=== PATIENT | female | born 1965 | race Caucasian/White ===

== ENCOUNTER 2020-07-19 15:46 | Outpatient (CLI) | payer OTHER, SELFPAY ==
--- NOTE | ~2020-07-19 | MM_ITS ---
EXAMINATION: MM screening opal BI w mook HISTORY: Screening TECHNIQUE: Craniocaudal and mediolateral oblique 3-D tomosynthesis images were obtained and synthetic 2-D images were generated. CAD analysis was submitted and interpreted. COMPARISON: Comparison to multiple prior studies sequentially, with oldest reviewed study dated 12/10. BREAST PARENCHYMAL COMPOSITION: The breasts are heterogenously dense, which may obscure small masses. FINDINGS: There is no evidence of suspicious mass, calcification, or architectural distortion to sugg est malignancy in either breast. There has been no suspicious interval change. IMPRESSION: 1. No mammographic evidence of malignancy. 2. Recommend routine screening mammography in one year. BI-RADS Category 1: Negative Reviewed, dictated and finalized at location A. F PAYROLL CLERK
== END 2020-07-19 15:47 | disposition home or self-care (01) ==
LOC: ANHIMG 15:52
PROVIDERS: PCP Family Medicine; Visit Provider Physician Assistant
DX: Z12.31 Encounter for screening mammogram for malignant neoplasm of breast (principal)
CPT/HCPCS: 77063; 77067

== ENCOUNTER 2020-08-04 16:03 | Outpatient (CLI) | payer OTHER, SELFPAY | END 2020-08-04 16:04 | disposition home or self-care (01) | LOC: ANHCOVIDVC 16:03 | PROVIDERS: PCP Family Medicine | DX: Z23 Encounter for immunization (principal) | CPT/HCPCS: 0001A; 91300 ==

== ENCOUNTER 2020-08-25 15:59 | Outpatient (CLI) | payer OTHER, SELFPAY | END 2020-08-25 16:00 | disposition home or self-care (01) | LOC: ANHCOVIDVC 15:59 | PROVIDERS: PCP Family Medicine | DX: Z23 Encounter for immunization (principal) | CPT/HCPCS: 0002A; 91300 ==

== ENCOUNTER 2021-05-10 01:27 | Day surgery (SDC) | payer OTHER, SELFPAY ==
[2021-04-27 13:49] VITALS: BMI 19.0
[2021-05-10 08:53] VITALS: BP 95/72; PULSE 93; RESP 16; TEMP 36.2; O2SAT 100
[2021-05-10] MEDS: LACTATED RINGERS 1,000 ML 150 ML IV CONT (09:04)
--- NOTE | 2021-05-10 09:18 | WPDANESEPPF ---
Anes - Initial Pre Proc Eval Procedure: Operation Date: 05/10/21 10:00 Proposed Procedures p Screening Colonoscopy - Latrell Paredes MD Date/Time: 05/10/21 09:18 Surgeon: Latrell Paredes MD Pre Op Diagnosis: neoplasm screening Patient Data Age: 56 Gender: F Height: 1.7 m Weight: 50.5 kg Last Vital Signs Temp 36.2 C L 05/10/21 08:53 Pulse 93 05/10/21 08:53 Resp 16 05/10/21 08:53 BP 95/72 L 05/10/21 08:53 Pulse Ox 100 05/10/21 08:53 Allergies Allergy/AdvReac Type Severity Reaction Status Date / Time No Known Allergies Allergy Mild Verified 05/10/21 08:52 Home Medications Medication Instructions Recorded Confirmed Type estradiol 1 g VAGINAL .COMPLEX #42.5 gm 11/09/20 05/10/21 Rx paroxetine HCl 20 mg tablet See Rx Instructions .ROUTE 01/30/21 05/10/21 Rx .COMPLEX #90 tablet Patient hx anesthesia problems: none Family hx anesthesia problems: none Results Review: All pre-operative results and documents have been reviewed as part of the pre-operative evaluation. [facility] Past Medical History Medical History (Updated 10/25/19 @ 11:12 by Elvira Greenwood PA-C) Carpal tunnel syndrome (~2016) Surgical History Surgical History H/O hand surgery (~10/13/19) [facility] arthroplasty H/O neck surgery (~2013) Hx of LASIK Family History Family History Grandparent Diabetes mellitus Family history of mental disorder Hypertension Family history of cardiovascular disease Family history of coronary artery disease Mother Hypertension Social History Social History Smoking packs per day: 1 Smoking cigarettes per day: 20.0 Years smoked: 23 Smoking pack-years: 23.00 Smoking status: Former smoker Tobacco type: cigarettes Smoking end date: 04/18/88 Alcohol intake: current Drinks per week: 5 Substance use: never Substance use type: does not use Living arrangements: with family Spiritual care concerns: No Anes - Eval Final PreProcedure Day of Procedure 05/10/21 09:18 Patient weight: thin Heart: regular rate and rhythm Lungs: clear to auscultation Airway: Mallampati scale class II Neurological: alert and oriented Last oral intake: >/= 8 hours ASA classification: II Emergent: no Anesthetic plan: proceed Anesthesia type and monitoring: general GIVS and standard monitoring Results Review: All pre-operative results and documents have been reviewed as part of the pre-operative evaluation. Informed Consent: The patient's anesthetic plan and its attendant risks and benefits were discussed with the patient/family/POA. Questions were solicited and answers provided to the satisfaction of the patient/family/POA.
--- NOTE | 2021-05-10 09:26 | WPDGICN ---
Assessment and Plan Assessment and plan (1) Encounter for screening colonoscopy: Code(s): Z12.11 - Encounter for screening for malignant neoplasm of colon Status: Acute Assessment and Plan: Patient presents for screening colonoscopy. Appears to be at average risk for colon polyps. GI Consult Note Consult date/time: 05/10/21 09:26 HPI: Raquel Celis is a 56 year old female Presents for screening colonoscopy. Patient's current weight appetite bowel movements are normal. She denies abdominal pain. She has had no bleeding. Family history is noncontributory. Review of Systems Review of Systems: All systems reviewed & are unremarkable except as noted in HPI and below PMFSH Past Medical History Medical History (Updated 05/10/21 @ 09:27 by Latrell Paredes MD) Carpal tunnel syndrome (~2016) Surgical History Surgical History H/O hand surgery (~10/13/19) [facility]MC arthroplasty H/O neck surgery (~2013) Hx of LASIK Family History Family History Grandparent Diabetes mellitus Family history of mental disorder Hypertension Family history of cardiovascular disease Family history of coronary artery disease Mother Hypertension Social History Social History Smoking packs per day: 1 Smoking cigarettes per day: 20.0 Years smoked: 23 Smoking pack-years: 23.00 Smoking status: Former smoker Tobacco type: cigarettes Smoking end date: 04/18/88 Alcohol intake: current Drinks per week: 5 Substance use: never Substance use type: does not use Living arrangements: with family Spiritual care concerns: No Meds Home Medications and Allergies Home Medications Medication Instructions Recorded Confirmed Type estradiol 1 g VAGINAL .COMPLEX #42.5 gm 11/09/20 05/10/21 Rx paroxetine HCl 20 mg tablet See Rx Instructions .ROUTE 01/30/21 05/10/21 Rx .COMPLEX #90 tablet Allergies Allergy/AdvReac Type Severity Reaction Status Date / Time No Known Allergies Allergy Mild Verified 05/10/21 08:52 Vital Signs Vital Signs - 24 hr 05/10/21 08:53 Temperature 97.1 F L Pulse Rate 93 Respiratory Rate 16 Blood Pressure 95/72 L Pulse Oximetry 100 Exam Narrative: Physical exam reveals patient to be alert. Vital signs stable. HEENT exam is unremarkable. Patient is anicteric. Lungs are clear to auscultation and percussion. Heart is without murmur or extra sounds. Abdominal exam bowel sounds present soft nontender with no organomegaly. Digital external rectal exam is normal.
[2021-05-10 10:24] VITALS: BP 118/68; PULSE 94; RESP 14; O2SAT 100
[2021-05-10 10:34] VITALS: BP 108/59; PULSE 77; RESP 13; O2SAT 100
[2021-05-10 10:44] VITALS: BP 108/56; PULSE 77; RESP 13; O2SAT 100
== END 2021-05-10 10:58 | disposition home or self-care (01) ==
PROVIDERS: PCP Family Medicine; Visit Provider Internal Medicine Gastroenterology
PROC: 0DJD8ZZ Inspection of Lower Intestinal Tract, Via Natural or Artificial Opening Endoscopic (ICD-10-PCS; CPT 45378; principal; 2021-05-10 10:00)
DX: Z12.11 Encounter for screening for malignant neoplasm of colon (principal); K64.8 Other hemorrhoids
CPT/HCPCS: 45378; J2704; J7120

== ENCOUNTER 2022-01-05 09:25 | Outpatient (CLI) | payer OTHER, SELFPAY ==
--- NOTE | ~2022-01-05 | MM_ITS ---
EXAMINATION: MM screening opal BI w mook HISTORY: Screening TECHNIQUE: Craniocaudal and mediolateral oblique 3-D tomosynthesis images were obtained and synthetic 2-D images were generated. CAD analysis was submitted and interpreted. COMPARISON: Comparison to multiple prior studies sequentially, with oldest reviewed study dated 06/05. BREAST PARENCHYMAL COMPOSITION: The breasts are heterogeneously dense, which may obscure small masses FINDINGS: There is no evidence of suspicious mass, calcification, or architectural distortion to sugg est malignancy in either breast. There has been no suspicious interval change. IMPRESSION: 1. No mammographic evidence of malignancy. 2. Recommend routine screening mammography in one year. BI-RADS Category 1: Negative Reviewed, dictated and finalized at location A.
== END 2022-01-05 09:26 | disposition home or self-care (01) ==
PROVIDERS: PCP Family Medicine; Visit Provider Physician Assistant
DX: Z12.31 Encounter for screening mammogram for malignant neoplasm of breast (principal)
CPT/HCPCS: 77063; 77067

== ENCOUNTER 2022-04-03 09:20 | Emergency (ER) | payer OTHER, SELFPAY ==
--- NOTE | ~2022-04-03 | CT_ITS ---
EXAMINATION: CT brain wo con DATE: 04/03/2022 10:04 INDICATION: Head injury. TECHNIQUE: Computed tomography (CT) of the head was performed without intravenous contrast. The mA wa s adjusted according to patient size. Iterative reconstruction technique was employed. The dose-lengt h product was 605.33 mGy-cm. COMPARISON: None FINDINGS: There is no intracranial hemorrhage, acute infarction, or abnormal intracranial mass lesion . There are scattered areas of low attenuation in the cerebral white matter. The ventricles are carson l in size. There is mild mucosal thickening in the paranasal sinuses. The mastoid air cells are carson l. The orbits are normal. There is a frontal scalp laceration. IMPRESSION: 1. Mild nonspecific cerebral white matter disease, which likely represents chronic small vessel ische l[place] disease. Reviewed, dictated and finalized at location A. ING AGENT IMPRESSION: 1. Mild nonspecific cerebral white matter disease, which likely represents body designer juvencio small vessel ischemic disease.
--- NOTE | ~2022-04-03 | CT_ITS ---
EXAMINATION: CT cervical spine wo con DATE: 04/03/2022 10:04 INDICATION: Head injury. TECHNIQUE: Computed tomography (CT) of the cervical spine was performed without intravenous contrast. Automated exposure control and iterative reconstruction technique were employed. The dose-length pro duct was 135.41 mGy-cm. COMPARISON: None FINDINGS: There is mild scarring at the lung apices. There is 2 mm anterolisthesis of C7 on T1. There are changes of anterior fusion procedure from C5 to C7 with healed interbody bone graft and anterior plate and screws. Vertebral body heights are normal. There is mildly decreased disc height at C7-T1. The following disc levels are specifically discussed: C2-C3: There is no uncovertebral joint osteoarthritis. There is severe right and moderate left facet joint osteoarthritis. There is no neural foraminal stenosis. There is no central canal stenosis. C3-C4: There is moderate right and mild left uncovertebral joint osteoarthritis. There is mild left f acet joint osteoarthritis. There is ankylosis of right facet joint with moderate hypertrophy. There i s moderate right neural foraminal stenosis. There is no central canal stenosis. C4-C5: There is severe right and moderate left uncovertebral joint osteoarthritis. There is severe ri ght facet joint osteoarthritis. There is moderate right and mild left neural foraminal stenosis. Ther e is mild central canal stenosis. C5-C6: There is moderate bilateral uncovertebral joint hypertrophy. There is ankylosis of the facet j oints with mild hypertrophy. There is moderate and mild left neural foraminal stenosis. There is no c entral canal stenosis. C6-C7: There is severe right and moderate left uncovertebral joint hypertrophy. There is mild bilater al facet joint osteoarthritis. There is moderate neural foraminal stenosis. There is no central canal stenosis. C7-T1: There is no uncovertebral joint osteoarthritis. There is severe bilateral facet joint osteoart hritis. There is mild bilateral neural foraminal stenosis. There is no central canal stenosis. IMPRESSION: 1. No fracture. 2. Moderate cervical spondylosis. 3. Anterior fusion procedure from C5 to C7. Reviewed, dictated and finalized at location A. NT APPLICATION SUPPORT ENGINEER
--- NOTE | ~2022-04-03 | CT_ITS ---
EXAMINATION: CT facial bones wo con DATE: 04/03/2022 10:53 INDICATION: Facial pain and epistaxis post fall with head injury TECHNIQUE: Computed tomography (CT) of the facial bones and maxillofacial region was performed withou t intravenous contrast. Coronal reconstructions were obtained. Automated exposure control and iterati ve reconstruction technique were employed. The dose-length product was 284.47 mGy-cm. COMPARISON: Head CT dated 04/03/2022 FINDINGS: Supraorbital left frontal skin laceration and associated contusion. Mild soft tissue swelling along t he left side of the bridge of the nose where there is nasal bone fracture with minimal angulation and less than 1 mm step-off. Nasal septum is midline and appears intact. Mastoid air cells, middle ear c avities and maxillofacial sinuses are clear. No other maxillofacial fractures. Specifically the chavez of the orbits and paranasal sinuses, the zygomatic arches, mandible and pterygoid plates are normal. C5-C6 anterior spinal fusion with partially visualized anterior plate and screw fixation. IMPRESSION: 1. Left nasal bone fracture without significant displacement or angulation. No other maxillofacial fr actures. Reviewed, dictated and finalized at location B. TRICAL PANEL BUILDER IMPRESSION: 1. Left nasal bone fracture without significant displacement or angulation. No other maxillofacial fractures.
[2022-04-03 09:37] VITALS: BP 139/68; PULSE 68; RESP 18; O2SAT 100
--- NOTE | 2022-04-03 10:24 | ED.GENADULT ---
HPI - General Adult General Chief complaint: Wound/Laceration Stated complaint: HI Time Seen by Provider: 04/03/22 09:43 Source: patient Mode of arrival: ambulatory Limitations: no limitations History of Present Illness HPI narrative: Patient is a 57-year-old female who presents the ED with report of head injury. Patient reports she tripped and fell at work this morning, landing straight forward, hitting her face on the ground. She did not lose consciousness. She sustained a laceration to the bridge of her nose and to her forehead, between her eyebrows. No other injuries. No other pain. No neck pain, back pain. No prodromal symptoms. Tetanus status up-to-date. Related Data Allergies Allergy/AdvReac Type Severity Reaction Status Date / Time No Known Allergies Allergy Mild Verified 04/03/22 09:42 Review of Systems Review of Systems: CONSTITUTIONAL: Denies fever, chills, or sweats. EYES: Denies visual changes. CARDIOVASCULAR: Denies chest pain. RESPIRATORY: Denies dyspnea. GASTROINTESTINAL: Denies abdominal pain, nausea, vomiting. GENITOURINARY: Denies dysuria or hematuria. SKIN: Reports laceration to forehead. MUSCULOSKELETAL: Denies neck pain, back pain, joint pain, or myalgia. NEUROLOGIC: Reports head injury. Denies dizziness, LOC, headache, numbness, or weakness. All systems reviewed & are unremarkable except as noted in HPI and below PMFSH Past Medical History Medical History Carpal tunnel syndrome (~2016) Hepatitis C antibody test negative (11/21/20) Surgical History Surgical History H/O hand surgery (~10/13/19) [facility] arthroplasty H/O neck surgery (~2013) Hx of MICAELA Family History Family History Grandparent Diabetes mellitus Family history of mental disorder Hypertension Family history of cardiovascular disease Family history of coronary artery disease Mother Hypertension Social History Social History Smoking packs per day: 1 Smoking cigarettes per day: 20.0 Years smoked: 23 Smoking pack-years: 23.00 Smoking status: Former smoker Tobacco type: cigarettes Smoking end date: 04/18/88 Alcohol intake: current Drinks per week: 5 Substance use: never Substance use type: does not use Spiritual care concerns: No Exam Narrative: GENERAL: Well appearing, well-nourished, non-toxic, in no acute distress. HEAD: Normocephalic. EENT: PERRLA, EOMI, conjunctiva clear. TMs without bulging or erythema bilaterally. No TM perforation. Small abrasion to bridge of nose. Tenderness to palpation over bridge of nose. Dried blood in left nare. No septal hematoma. NECK: Supple. No adenopathy, no masses. No significant midline spinal tenderness. RESPIRATORY: Airway patent, respirations nonlabored. Clear to auscultation bilaterally, no rales, rhonchi, wheezing. CARDIOVASCULAR: Regular rate and rhythm without murmurs, rubs, or gallops. Peripheral pulses 2+ and equal bilaterally. MUSCULOSKELETAL: Moves all extremities. Strength/ROM intact without gross deformities. Strength 5 out of 5 in upper and lower extremities bilaterally. No midline thoracic or lumbar spinal tenderness. SKIN: Warm, dry, normal color. No rashes. Approx. 4cm laceration to left forehead, just above eyebrow, almost lightening bolt shape. NEURO: A&O X3. Speech clear. Cranial nerves II-XII grossly intact. Steady gait. No ataxic movements. No focal deficits. PSYCHIATRIC: Appropriate mood and affect. Normal interaction. Course Vital Signs Vital signs: Vital Signs Pulse Rate 68 04/03/22 09:37 Respiratory Rate 18 04/03/22 09:37 Blood Pressure 139/68 04/03/22 09:37 Pulse Oximetry 100 04/03/22 09:37 Oxygen Delivery Room Air 04/03/22 09:37 Pulse Rate 75 04/03/22 12:52 Resp
[2022-04-03 12:52] VITALS: BP 125/60; PULSE 75; RESP 16; O2SAT 98
== END 2022-04-03 12:53 | disposition home or self-care (01) ==
PROVIDERS: Emergency Provider Emergency Medicine; PCP Physician Assistant
DX: S01.81XA Laceration without foreign body of other part of head, initial encounter (principal); S02.2XXA Fracture of nasal bones, initial encounter for closed fracture; Z87.891 Personal history of nicotine dependence; W01.0XXA Fall on same level from slipping, tripping and stumbling without subsequent striking against object, initial encounter
CPT/HCPCS: 12013; 70450; 70486; 72125; 99284

== ENCOUNTER 2022-04-13 11:36 | Outpatient (CLI) | payer OTHER, SELFPAY ==
--- NOTE | ~2022-04-13 | DEXA_ITS ---
Bone Density Report Name: JIMENEZ CAPUTO Age: 57 Sex: Female Ethnicity: White Date of : 1965 Indication: postmenopausal; screening for osteoporosis; prior fracture; Referring Provider: AZUL LOVING Study: Bone densitometry was performed. Exam Date: April 13, 2022 Accession number: [id number] Bone Density: Region BMD T-score Z-score Classification AP Spine(L1-L4) 0.836 -1.9 -0.7 Osteopenia Femoral Neck (Left) 0.577 -2.4 -1.3 Osteopenia Total Hip (Left) 0.651 -2.4 -1.6 Osteopenia Femoral Neck (Right) 0.601 -2.2 -1.1 Osteopenia Total Hip (Right) 0.696 -2.0 -1.2 Osteopenia Total Hip Mean 0.673 -2.2 -1.4 Osteopenia World Health Organization criteria for BMD impression classify patients as: Normal (T-score at or above -1.0), Osteopenia (T-score between -1.0 and -2.5), or Osteoporosis (T-score at or below -2.5). 10-year Fracture Risk(1): Major Osteoporotic Fracture 14% Hip Fracture 2.7% Reported Risk Factors: [place] (), Neck BMD=0.577, BMI=18.6, previous fracture (1) FRAX(R) Version 3.08. Fracture probability calculated for an untreated patient. Fracture probability may be lower if the patient has received treatment. Clinical Information Provided by Patient: Has had a low trauma fracture Patient maximum height was 67 Menopause Age: 50 Drinks caffeinated beverages Onset of menses at age 16 Number of children 2 Impression: The patient has low bone mass, based on the Left Total Hip T-score. The patient has an estimated ten-year risk of hip fracture of 2.7% and an estimated ten-year risk of major fracture of 14%, based on the WHO FRAX algorithm. The patient has risk factors, including: previous fracture. Discussion: BONE DENSITY IS LOW AT ONE OR MORE SKELETAL SITES. This patient's lowest T-score is low at one or more skeletal sites. It meets the World Health Organization's (WHO) criteria for ?low bone mass? (T-score between -1.0 and -2.5). The patient's 10-year risk of fracture as calculated by FRAX is less than the threshold where pharmacological therapy is recommended by the National Osteoporosis Foundation (NOF). However, all treatment decisions require clinical judgment and consideration of individual patient factors, including patient preferences, comorbidities, previous drug use, risk factors not captured in the FRAX model (e.g., frailty, falls, vitamin D deficiency, increased bone turnover, interval significant decline in bone density) and possible under or overestimation of fracture risk by FRAX. The patient should follow a healthful lifestyle (good nutrition with adequate calcium and vitamin D, and appropriate weight-bearing exercise). Follow-Up: Consider repeating this study in 2 to 3 years to reassess this patient's status, or sooner if there is some new
== END 2022-04-13 11:37 | disposition home or self-care (01) ==
PROVIDERS: PCP Physician Assistant; Visit Provider Physician Assistant
DX: Z13.820 Encounter for screening for osteoporosis (principal); M85.88 Other specified disorders of bone density and structure, other site; M85.852 Other specified disorders of bone density and structure, left thigh; M85.851 Other specified disorders of bone density and structure, right thigh
CPT/HCPCS: 77080

== ENCOUNTER → 2023-06-02 14:06 | Outpatient (CLI) | payer OTHER, SELFPAY ==
--- NOTE | ~2023-06-02 | MM_ITS ---
EXAMINATION: MM screening opal BI w mook HISTORY: Screening TECHNIQUE: Craniocaudal and mediolateral oblique 3-D tomosynthesis images were obtained and synthetic 2-D images were generated. CAD analysis was submitted and interpreted. COMPARISON: Comparison to multiple prior studies sequentially, with oldest reviewed study dated 11/28. BREAST PARENCHYMAL COMPOSITION: The breasts are heterogeneously dense, which may obscure small masses FINDINGS: There is a new asymmetry in the upper outer quadrant of the left breast posteriorly. The ri ght breast is stable without evidence for malignancy. IMPRESSION: 1. New left breast asymmetry, upper outer quadrant. 2. Additional mammographic views and possible breast ultrasound are recommended. BI-RADS Category 0: Incomplete: Needs additional imaging evaluation. Reviewed, dictated and finalized at location A. CLOTH EXAMINER IMPRESSION: 1. New left breast asymmetry, upper outer quadrant. 2. Additional mammographic views and possible breast ultrasound are recommended . BI-RADS Category 0: Incomplete: Needs additional imaging evaluation.
== END ==
PROVIDERS: PCP Family Medicine; Visit Provider Nurse Practitioner
DX: Z12.31 Encounter for screening mammogram for malignant neoplasm of breast (principal); R92.8 Other abnormal and inconclusive findings on diagnostic imaging of breast
CPT/HCPCS: 77063; 77067

== ENCOUNTER → 2023-06-27 14:17 | Outpatient (CLI) | payer OTHER, SELFPAY ==
--- NOTE | ~2023-06-27 | MMUS_ITS ---
EXAMINATION: MM diagnostic opal LT w mook, US breast LT limited HISTORY: New left breast asymmetry reported in upper outer quadrant on 06/02/2023 screening mammogram TECHNIQUE: Additional 3-D tomosynthesis images of the left breast were performed and synthetic 2-D im ages were generated. CAD analysis was submitted and interpreted. High resolution upper outer quadrant left breast ultrasound was performed. COMPARISON: 06/02/2023 bilateral screening mammogram FINDINGS: MAMMOGRAPHIC FINDINGS: The previously reported new left breast asymmetry is not confirmed on these supplemental views and wa s likely summation shadow of overlying fibroglandular content. Ultrasound of the upper outer quadrant was performed to confirm. ULTRASOUND: No suspicious mass or shadowing or other significant sonographic abnormalities detected in the upper outer quadrant of the left breast. IMPRESSION: 1. No mammographic or sonographic evidence of malignancy 2. Routine annual mammographic screening is recommended BI-RADS Category 1: Negative Reviewed, dictated and finalized at location A. HT AGENT IMPRESSION: 1. No mammographic or sonographic evidence of malignancy 2. Routine annual mammographic screening is recommended BI-RADS Category 1: Negative
== END ==
PROVIDERS: PCP Family Medicine; Visit Provider Nurse Practitioner
DX: R92.8 Other abnormal and inconclusive findings on diagnostic imaging of breast (principal)
CPT/HCPCS: 76642; 77061; 77065; G0279

== ENCOUNTER 2023-07-10 16:14 | Outpatient (CLI) | payer OTHER, SELFPAY ==
--- NOTE | ~2023-07-10 | MR_ITS ---
EXAMINATION: MR brain IAC wo con DATE: 07/10/2023 16:40 INDICATION: Unspecified injury of head, initial encounter. TECHNIQUE: Magnetic resonance imaging (MRI) of the brain, brainstem, and internal auditory canals was performed without intravenous contrast. COMPARISON: Head CT 04/03/2022 FINDINGS: There are scattered areas of nonspecific increased T2-weighted signal intensity in the cere bral white matter including periventricular and juxtacortical regions. There are areas of increased T 2-weighted signal intensity in the helen and middle cerebellar peduncles and left cerebellum. There is no acute ischemic infarct or intracranial hemorrhage. The ventricles are normal in size. The orbits are normal. There is mild mucosal thickening in right maxillary sinus. The mastoid air cells are norm al. IMPRESSION: 1. Moderate white matter disease, which may be multiple sclerosis and/or chronic small vessel ischemi c disease. Reviewed, dictated and finalized at location E. CHUTE CUSHION INSTALLER IMPRESSION: 1. Moderate white matter disease, which may be multiple sclerosis and/or chroni c small vessel ischemic disease.
== END 2023-07-10 16:15 | disposition home or self-care (01) ==
LOC: ANHIMG 16:18
PROVIDERS: PCP Family Medicine; Visit Provider Family Medicine
DX: H55.00 Unspecified nystagmus (principal); R27.0 Ataxia, unspecified; S09.90XA Unspecified injury of head, initial encounter; X58.XXXA Exposure to other specified factors, initial encounter; R90.82 White matter disease, unspecified
CPT/HCPCS: 70551

== ENCOUNTER 2024-11-23 09:57 | Outpatient (CLI) | payer OTHER, SELFPAY ==
--- NOTE | ~2024-11-23 | MMUS_ITS ---
EXAMINATION: MM diagnostic opal BI w mook, US breast BI complete HISTORY: Breast pain TECHNIQUE: Additional 3-D tomosynthesis images of the breasts were performed and synthetic 2-D images were generated. CAD analysis was submitted and interpreted. High resolution bilateral complete breas t ultrasound was performed. COMPARISON: Comparison to multiple prior studies sequentially, with oldest reviewed study dated 08/2017. BREAST PARENCHYMAL COMPOSITION: Dense: The breasts are heterogeneously dense, which may obscure small masses FINDINGS: MAMMOGRAPHIC FINDINGS: There are no suspicious masses, calcifications or architectural distortion in either breast to sugges t malignancy. ULTRASOUND: Complete US of all 4 quadrants of the breast/s and retroareolar region was reviewed. Normal heterogen eous echotexture without focal solid or cystic mass. IMPRESSION: 1. No evidence for malignancy in either breast. 2. Routine yearly screening mammogram and regular clinical breast examination are recommended. BI-RADS Category 1: Negative Reviewed, dictated and finalized at location A. IMPRESSION: 1. No evidence for malignancy in either breast. 2. Routine yearly screening mammogram and regular clinical breast examination a re recommended. BI-RADS Category 1: Negative
== END 2024-11-23 09:58 | disposition home or self-care (01) ==
PROVIDERS: PCP Family Medicine; Visit Provider Family Medicine
DX: R92.8 Other abnormal and inconclusive findings on diagnostic imaging of breast (principal)
CPT/HCPCS: 76641; 77062; 77066; G0279

== ENCOUNTER 2025-01-11 10:54 | Outpatient (CLI) | payer OTHER, SELFPAY ==
--- OUTSIDE RECORDS SUMMARY | 2016-09-10 11:00 | XMS_ITS | Continuity of Care Document ---
Author Organization [facility] Address [address] [place] [address] Phone Care Team Providers Care Christmas Bell Ringer Name Role Phone Niko Barahona MD Unavailable Unavailable Procedures Procedure Date DISABILITY EXAMINATION Advance Directives Directive Yes / No Effective Date File Name No Information Encounters Encounter Description Practice Location Reason(s) For Visit Diagnoses Date Provider Providers Copied on Encounter DISABILITY EXAMINATION [facility], [address], [place], [address], [place] tel:[phone] [facility] Bilateral carpal tunnel syndromePrimary osteoarthritis of first carpometacarpal joint of right hand 7 Jun Pope. [address], [place], [place], [id number] . tel: [phone] Family History Family Member Type Diagnosis Age At Onset No Information Payers Payer name Insurance type Covered libertarian ID Authoriza tion(s) No Information Social History Type Description Quantity Date Captured Comments Sex Female Smoking Status No Information Chief Complaint And Reason For Visit No Information Reason For Referral Reason For Referral No Information Plan Of Treatment Date Type Action Status Referral Ordered: RADEX HAND MINIMUM 3 VIEWS LT ordered Referral Ordered: RADEX HAND MINIMUM 3 VIEWS RT ordered History Of Present Illness Encounter Date Complaint History Of Prese nt Illness No Information Functional Status Date Functional Assessmen t No Information Instructions Date Instruction Additional Infor mation No Information Assessments Type Assessment Date assessment Bilateral carpal tunnel syndrome assessment Primary osteoarthrit is of first carpometacarpal joint of right hand Patient Care Teams Name Effective Dates (start - stop) Status Members No Information
--- OUTSIDE RECORDS SUMMARY | 2025-01-11 11:26 | XMS_ITS | Clinical Summary ---
Author Organization [facility] [employer] Address [address] [place] [address] Care Team Providers Care Refractory Worker Name Role Phone Kip Kaur MD Primary Care Provider [phone] Source Comments [facility] [employer]non-owned Affiliates and Associated Physician Practices is amultiple site organization consisting of ambulatory clinics and hospital sitesin [place], [place], [place] and [place]. This disclosure is being madepursuant to the Care Everywhere program and may not contain all information available regarding this patient. Last updated 18.[employer] Allergies No known active allergies Medications * Be aware that medications may not be up to date on this document. Alwaysverify current medications with the patient. acetaminophen (TYLENOL) 500 MG tablet Take 1 (one) tablet by mouth every 4 hours as needed for Fever or Pain Maximum allowable Acetaminophen amount = 4 Grams (4000 mg) / 24 hours. 30 tablet 2 Active PARoxetine (PAXIL) 20 MG tablet Take 20 mg by mouth once daily 2 Active traMADol (ULTRAM) 50 MG tablet Take 1 (one) tablet by mouth every 6 hours as needed for Pain 35 tablet 2 Active Myrbetriq 25 MG tablet Take 25 mg by mouth once daily 2 Active Active Problems No known active problems Immunizations Immunization Administration Dates Next Due TDAP (7yrs+) 11/15/2021 Social History Tobacco Use Types Packs/Day Years Used Date Smoking Tobacco: Former Cigarettes Smokeless Tobacco: Never Alcohol Use Standard Drinks/Week Comments Not Currently 0 (1 standard drink = 0.6 oz pur e alcohol) Comments No Sex and Gender Information Value Date Recorded Sex Assigned at Not on file 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 Gender Identity Not on file Sexual Orientation Not on file Last Filed Vital Signs Vital Sign Reading Time Taken Comments Blood Pressure 115/63 11/15/2021 2:15 AM CDT Pulse 75 11/15/2021 2:15 AM CDT Temperature 36.4 C (97.5 F) 11/15/2021 1:45 AM CDT Respiratory Rate 21 11/15/2021 2:15 AM CDT Oxygen Saturation 98% 11/15/2021 2:15 AM CDT Inhaled Oxygen Concentration - - Weight 54.4 kg (120 lb) 01/23/2022 9:36 AM CDT Height 170.2 cm (5' 7) 01/23/2022 9:36 AM CDT Body Mass Index 18.79 01/23/2022 9:36 AM CDT Plan of Treatment Health Maintenance Due Date Last Done Comments COLOGUARD (AGES 45-75) - COL ON CA SCREENING 1965 COLON MONITORING 1965 COLONOSCOPY - COLON CA SCREENING 1965 CT COLONOGRAPHY - COLON CA SCREENING 1965 Colorectal Cancer Screening 1965 FIT - COLON CA SCREENING 1965 FLEX SIG - COLON CA SCREENING 1965 LIPID TESTING 1965 MAMMOGRAM 1965 HIV SCREENING 01/16/1980 HEPATITIS C SCREENING 01/11/1983 HEPATITIS B VACCINE (1 of 3 - 19+ 3-dose series) 01/16/1984 PAP SMEAR 1986 PNEUMOCOCCAL VACCINE 50+ (1 of 1 - PCV) 2015 ZOSTER VACCINE (1 of 2) 2015 COVID-19 VACCINE (3 - 2023-2 5 season) 2024 08/25/2020, 08/04/2020 DEPRESSION SCREENING 05/19/2024 INFLUENZA VACCINE (#1) 2025 DTAP/TDAP/TD VACCINES (2 - T d or Tdap) 11/16/2031 11/15/2021 HIB VACCINE Aged Out No longer eligi ble based on patient's age to complete this topic HPV VACCINE Aged Out No longer eligi ble based on patient's age to complete this topic MENINGOCOCCAL (Group B) VACCINE SHARED DECISION-MAKING Aged Out No longer eligible based on patient's age to complete this topic MENINGOCOCCAL GROUPS A/C/Y/W VACCINE Aged Out No longer eligible b ased on patient's age to complete this topic Insurance [facility] HE[employer] Care Teams Refractory Worker Relationship Specialty Start Date End Date Kip Kaur MD [address] [place] [address] PCP - General 11/15/21
--- OUTSIDE RECORDS SUMMARY | 2025-01-11 11:26 | XMS_ITS | Encounter Summary ---
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 Gender Identity Not on file Sexual Orientation Not on file documented as of this encounter Plan of Treatment Not on file documented as of this encounter Procedures Procedure Name Priority Date/Time Associated Diagnosis Comments SARS-COV-2 (COVID-19) IN HOUSE Routine 10/07/2019 3:42 PM CDT documented in this encounter Results * SARS-COV-2 (COVID-19) IN HOUSE (10/07/2019 3:42 PM CDT) COVID-19 PCR Not detected Not detected, Invalid 10/08/2019 8:02 PM CDT [facility] Microbiology SPECIMEN FROM NASOPHARYNGEAL STRUCTURE / Unknown Collection / Unknown 10/07/2019 3:42 PM CDT 10/08/2019 11:17 AM CDT Narrative [facility] - 10/08/2019 8:02 PM CDT This Real Time RT-PCR assay was developed and its performance characteristics determined by [facility]. This test has been authorized by the Food and Drug administration (FDA)under an Emergency Use Authorization (EUA). This test has been validated in accordance with the FDA's guidance document Policy for Diagnostic Testing in Laboratories Certified to perform High Complexity Testing under CLIA prior to Emergency Use Authorization for Coronavirus Disease-2019 during the Public Health Emergency issued on July 17, 2019. FDA independent review of this validation is pending. This test is only authorized for the duration of time the declaration that circumstances exist justifying the authorization of emergency use of in vitro diagnostic tests for detection of SARS-CoV-2 virus and/or diagnosis of COVID-19 infection under section 564(b)(1) of the Act, 21 U.S.C 360bbb-3 (b)(1), unless the authorization is terminated or revoked sooner. This Real Time RT-PCR assay was developed and its performance characteristics determined by [facility]. This test has been authorized by the Food and Drug administration (FDA)under an Emergency Use Authorization (EUA). This test has been validated in accordance with the FDA's guidance document Policy for Diagnostic Testing in Laboratories Certified to perform High Complexity Testing under CLIA prior to Emergency Use Authorization for Coronavirus Disease-2019 during the Public Health Emergency issued on July 17, 2019. FDA independent review of this validation is pending. This test is only authorized for the duration of time the declaration that circumstances exist justifying the authorization of emergency use of in vitro diagnostic tests for detection of SARS-CoV-2 virus and/or diagnosis of COVID-19 infection under section 564(b)(1) of the Act, 21 U.S.C 360bbb-3 (b)(1), unless the authorization is terminated or revoked sooner. us LAB - MICROBIOLOGY ORDERABLES Fi nal Result [facility] [address] [place] [address], [facility] [phone] documented in this encounter Visit Diagnoses Not on filedocumented in this encounter Additional Health Concerns Infection Onset Date Last Indicated Resolved Time COVID-19 Under Investigation 10/08/2019 10/07/2019 10/08/2019 8:02 PM CDT documented as of this encounter Care Teams Public Safety Telecommunicator Relationship Specialty Start Date End Date Kip Kaur MD [address] [place] [address] PCP - General 11/15/21 documented as of this encounter
--- OUTSIDE RECORDS SUMMARY | 2025-01-11 11:26 | XMS_ITS | Clinical Summary ---
Author Organization [facility] Address [address] [place] [address] Care Team Providers Care Grinder And Honer Operator Automatic Name Role Phone Dylon Thompson MD Primary Care Provider [phone] Allergies No known active allergies Medications acetaminophen (TYLENOL) 500 mg tablet Take 1 tablet (500 mg total) by mouth every 4 (four) hours as needed 11/15/2021 Active meloxicam (MOBIC) 15 mg tablet Take 20 mg by mouth daily 08/27/2023 Active cyclobenzaprine (FLEXERIL) 10 mg tablet Take 1 tablet (10 mg total) by mouth 3 (three) times a day as needed for muscle spasms 06/23/2023 Active Myrbetriq 25 mg tablet extended release 24 hr Take 1 tablet (25 mg total) by mouth daily 12/19/2021 Active PARoxetine (PAXIL) 20 mg tablet Take 1 tablet (20 mg total) by mouth daily 10/05/2019 Active pregabalin (LYRICA) 100 mg capsule Take 1 capsule (100 mg total) by mouth nightly 08/24/2023 Active traMADoL (ULTRAM) 50 mg tablet Take 1 tablet (50 mg total) by mouth every 6 (six) hours as needed 12/05/2021 Active Active Problems Problem Noted Date Diagnosed Date Multiple sclerosis 09/23/2023 Encounters Date Type Department Care Team Description 10/12/2024 8:00 AM CDT Infusion [facility] [address] [place] [address] Multiple sclerosis (HCC) (Primary Dx) from Last 3 Months Immunizations Immunization Administration Dates Next Due Tdap 11/15/2021 Social History Tobacco Use Types Packs/Day Years Used Date Smoking Tobacco: Former Cigarettes Smokeless Tobacco: Never Tobacco Cessation:Counseling Given: Not Answered Hunger Vital Sign Answer Date Recorded Within the past 12 months, y ou worried that your food would run out before you got the money to buy more. Never true 04/12/20 24 Within the past 12 months, t he food you bought just didn't last and you didn't have money to get more. Never true 04/12/2024 Personal Safety Answer Date Recorded Have you ever been in or are you currently in a harmful physical or emotional relationship or is someone making you feel afraid or unsafe? 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 Gender Identity Not on file Sexual Orientation Not on file Obstetrics History Last Filed Vital Signs Vital Sign Reading Time Taken Comments Blood Pressure 124/54 10/12/2024 1:45 PM CDT Pulse 89 10/12/2024 1:45 PM CDT Temperature 36 C (96.8 F) 10/12/2024 8:11 AM CDT Respiratory Rate 15 10/12/2024 8:11 AM CDT Oxygen Saturation 97% 10/12/2024 1:45 PM CDT Inhaled Oxygen Concentration - - Weight 57.2 kg (126 lb) 10/12/2024 8:11 AM CDT Height 170.2 cm (5' 7) 10/12/2024 8:11 AM CDT Body Mass Index 19.73 10/12/2024 8:11 AM CDT Plan of Treatment Health Maintenance Due Date Last Done Comments Breast Cancer Screening-Mammogram 1965 Cervical Cancer Screening 1965 Colon Cancer Screening-Colonoscopy 1965 Depression Screening 1965 Hepatitis B Screening 1983 Regular Well Visit/Exam 18-64 1983 Zoster Vaccine (1 of 2) 2015 Covid-19 Vaccine (3 - 2023-2 5 season) 2024 08/25/2020, 08/04/2020 Influenza Vaccine (#1) 2025 DTaP/Tdap/Td Vaccine (2 - Td or Tdap) 11/16/2031 11/15/2021 Hepatitis C Screening Completed 08/28/2023 Pneumococcal vaccine <65 Aged Out No longer eligible based on patient's age to complete this topic Procedures Procedure Name Priority Date/Time Associated Diagnosis Comments HEPATITIS PANEL, ACUTE Routine 08/28/2023 10:31 AM CDT Multiple sclerosis (HCC) from Last 3 Months or Most Recently Relevant to Health Maintenance Results * Hepatitis panel, acute Blood (08/28/2023 10:31 AM CDT) Hep A IgM Nonreactive Nonreactive Hep B core IgM Nonreactive Nonreactive [facility] Hep C Ab Nonreactive [facility] Comment:Antibodies to HCV no t detected. Does NOT exclude the possibility of recent exposure to HCV. Current interpretive data was last revised on 22 HepBsAg Nonreactive Nonreactive [facility] Blood 08/28/2023 10:3 1 AM CDT 08/28/2023 11:21 AM CDT us Min [facility] - GENERAL ORDER JEREMY Final Result [facility] [address] [facility] [place] [address] from Last 3 Months or Most Recently Relevant to Health Maintenance Insurance [facility] [employer] [employer] [facility] Address: [place] [address] [facility] [employer] [facility] [employer] Address: [address] [address] Care Teams Grinder And Honer Operator Automatic Relationship Specialty Start Date End Date Dylon Thompson MD [facility] [address] [address] PCP - General Family Medicine 07/24/23
== END 2025-01-11 10:55 | disposition home or self-care (01) ==
LOC: ANHAUDIO 10:54
PROVIDERS: PCP Family Medicine; Visit Provider Family Medicine
DX: Z01.419 Encounter for gynecological examination (general) (routine) without abnormal findings (principal); Z01.411 Encounter for gynecological examination (general) (routine) with abnormal findings
CPT/HCPCS: 92557; 92567